=== PATIENT | male | born 1950 | race Caucasian/White ===

== ENCOUNTER 2016-10-10 09:30 | Day surgery (SDC) | payer MEDICARE ==
--- NOTE | ~2016-10-10 | EGD ---
EGD REPORT [facility] [address] [id number] NAME: JACOB JHA : [birth year] STATUS : [facility] – [place], [place] PAT#: [id number] AGE: 66 ADM/REG DATE : 10/10/16 MR#: [id number] REPORT SERV DATE: 10/10/16 DICTATED BY: JEFF MAS DATE: 10/10/16 REPORT STATUS : Draft TRANSCRIBED BY: [facility] DATE: 10/10/16 Endoscopy Center Patient Name: Jacob Jha Date of : 1950 Attending MD: JEFF MAS MD Procedure Date No Time: 10/10/2016 Procedure: Colonoscopy Indications: Screening for colorectal malignant neoplasm, Last colonoscopy remote past Referring MD: Lisa GARCÍA Medicines: See the Anesthesia note for documentation of the administered medications Complications: No immediate complications. Procedure: Pre-Anesthesia Assessment: - ASA Grade Assessment: IV - A patient with severe systemic disease that is a constant threat to life. After I obtained informed consent, the scope was passed under direct vision. Throughout the procedure, the patient's blood pressure, pulse, and oxygen saturations were monitored continuously. The CF [id number] was introduced through the anus and advanced to the cecum, identified by appendiceal orifice and ileocecal valve. The colonoscopy was performed without difficulty. The patient tolerated the procedure well. The quality of the bowel preparation was adequate. Some spasm. Findings: The perianal and digital rectal examinations were normal. Internal hemorrhoids were found during retroflexion and were small. A sessile polyp was found in the cecum. The polyp was small in size. The polyp was removed with a cold biopsy forceps. Resection and retrieval were complete. A sessile polyp was found in the ascending colon. The polyp was small in size. The polyp was removed with a cold biopsy forceps. Resection and retrieval were complete. A sessile polyp was found at the splenic flexure. The polyp was 10 mm in size. The polyp was removed with a hot snare. Resection and retrieval were complete. A sessile polyp was found in the descending colon. The polyp was 10 mm in size. The polyp was removed with a hot snare. Resection and retrieval were complete. A sessile polyp was found in the descending colon. The polyp was 10 mm in size. The polyp was removed with a hot snare. Resection was complete, but the polyp tissue was not retrieved. A sessile polyp was found in the descending colon. The polyp was small EGD REPORT [address] [address] NAME: JACOB JHA : [birth year] STATUS : [facility] – [place], [place] PAT#: [id number] AGE: 66 ADM/REG DATE : 10/10/16 MR#: [id number] REPORT SERV DATE: 10/10/16 DICTATED BY: JEFF MAS DATE: 10/10/16 REPORT STATUS : Draft TRANSCRIBED BY: [employer] DATE: 10/10/16 in size. The polyp was removed with a cold biopsy forceps. Resection and retrieval were complete. A sessile polyp was found in the sigmoid colon. The polyp was small in size. The polyp was removed with a cold biopsy forceps. Resection and retrieval were complete. Impression: - Internal hemorrhoids. - One small polyp in the cecum. Resected and retrieved. - One small polyp in the ascending colon. Resected and retrieved. - One 10 mm polyp at the splenic flexure. Resected and retrieved. - One 10 mm polyp in the descending colon. Resected and retrieved. - One 10 mm polyp in the descending colon. Complete resection. Polyp tissue not retrieved. - One small polyp in the descending colon. Resected and retrieved. - One small polyp in the sigmoid colon. Resected and retrieved. Recommendation: - Patient has a contact number available for emergencies. The signs and symptoms of potential delayed complications were discussed with the patient. Return to normal activities tomorrow. Written discharge instructions were provided to the patient. - Regular diet. - Continue present medications. - Repeat colonoscopy in 3 years for surveillance. - FOR YOUR BIOPSY RESULTS: Please go to [email or web address] and register to receive your results via the portal. Your biopsy results will be posted there in about 7 to 10 days. IF you do not see result in 10 days, call office. Procedure Code(s): --- Professional --- 27949, Colonoscopy, flexible, proximal to splenic flexure; with removal of tumor(s), polyp(s), or other lesion(s) by snare technique 13170, 59, Colonoscopy, flexible, proximal to splenic flexure; with biopsy, single or multiple Diagnosis Code(s): --- Professional --- K64.8, Other hemorrhoids D12.5, Benign neoplasm of sigmoid colon D12.4, Benign neoplasm of descending colon D12.3, Benign neoplasm of transverse colon EGD REPORT [address] [place]. [address] NAME: JACOB JHA : [birth year] STATUS : [facility] – [place], [place] PAT#: [id number] AGE: 66 ADM/REG DATE : 10/10/16 MR#: [id number] REPORT SERV DATE: 10/10/16 DICTATED BY: JEFF MAS DATE: 10/10/16 REPORT STATUS : Draft TRANSCRIBED BY: [employer] DATE: 10/10/16 D12.2, Benign neoplasm of ascending colon D12.0, Benign neoplasm of cecum Z12.11, Encounter for screening for malignant neoplasm of colon CPT copyright 2013 [employer] [place] [employer]. All rights reserved. The codes documented in this report are preliminary and upon health sciences manager review may be revised to meet current compliance requirements. Jeff Mas MD JEFF MAS MD 10/10/2016 11:31 AM This report has been signed electronically. Number of Addenda: 0 Note Initiated On: 10/10/2016 10:12 AM Scope Withdrawal Time 0 hours 22 minutes 47 seconds [address] [id number]
[~2016-10-10 09:30] MED LIST: ALLEGRA180 PO; ASAB PO; BRILINTA90 MG PO; COREG3 PO; COREG6 PO; FLONASE NAS; LIPITOR10 PO; NEXIUM20 M1 PO; NORV25 PO; PCET PO; PLAVIX PO; PRILO PO; PRIN10 PO; PRIN5 PO; PROAIR HFA INH; VITAMIN D1000 UNI1 PO
== END 2016-10-10 23:59 | disposition home or self-care (01) ==
LOC: DMU 09:30
PROVIDERS: Internal Medicine Gastroenterology
PROC: 0DBK8ZX Excision of Ascending Colon, Via Natural or Artificial Opening Endoscopic, Diagnostic (ICD-10-PCS; 2016-10-10)
PROC: 0DBM8ZX Excision of Descending Colon, Via Natural or Artificial Opening Endoscopic, Diagnostic (ICD-10-PCS; 2016-10-10)
PROC: 0DBN8ZX Excision of Sigmoid Colon, Via Natural or Artificial Opening Endoscopic, Diagnostic (ICD-10-PCS; 2016-10-10)
PROC: 0DBH8ZX Excision of Cecum, Via Natural or Artificial Opening Endoscopic, Diagnostic (ICD-10-PCS; principal; 2016-10-10 11:00)
PROC: 0DBL8ZX Excision of Transverse Colon, Via Natural or Artificial Opening Endoscopic, Diagnostic (ICD-10-PCS; 2016-10-10 11:00)
DX: Z12.11 Encounter for screening for malignant neoplasm of colon (principal); D12.0 Benign neoplasm of cecum; D12.2 Benign neoplasm of ascending colon; D12.4 Benign neoplasm of descending colon; K63.5 Polyp of colon; K64.8 Other hemorrhoids; J45.909 Unspecified asthma, uncomplicated; K21.9 Gastro-esophageal reflux disease without esophagitis; F17.210 Nicotine dependence, cigarettes, uncomplicated; J32.9 Chronic sinusitis, unspecified; I73.9 Peripheral vascular disease, unspecified; E78.00 Pure hypercholesterolemia, unspecified; Z88.8 Allergy status to other drugs, medicaments and biological substances; Z79.82 Long term (current) use of aspirin; Z79.899 Other long term (current) drug therapy; Z90.49 Acquired absence of other specified parts of digestive tract; Z98.890 Other specified postprocedural states
CPT/HCPCS: 88305; J2370